=== PATIENT | male | born 1950 | race Caucasian/White ===

== ENCOUNTER 2016-10-17 09:37 | Inpatient (IN) | payer BC ==
[~2016-10-17] VITALS: Ht 167.6 cm; Wt 78.5 kg
[~2016-10-17 09:37] MED LIST: ASPIR-LOW81 MG PO; LISINOPRIL20 MG PO; MEN'S 50+ DAIL1 EACH PO; PANTOPRAZOLE SO40 MG PO; Protonix PO; SIMVASTATIN40 MG PO; VICODIN ES 7.51 EAC1 PO; Zocor PO
[2016-10-17] MEDS ORDERED: HYDROCODON-ACE1 EAC9 PO (10:10)
[2016-10-17 11:08] LABS: EOSINOPHIL (%) 0.4 % (0-5); HEMATOCRIT 45.2 % (38.0-50.0); IMMATURE GRANULOCYTE (%) 0.3 % (0.0-0.7); INSTRUMENT ABS NEUTROPHIL CT 5.4 K/uL; LYMPHOCYTE COUNT 1.8 K/uL (1.0-2.8); MCH 29.7 PG (29.0-34.0); MCHC 34.1 G/DL (30.0-36.0); MCV 87.1 FL (86-99); MEAN PLAT.VOLUME 10.3 uM^3 (9.0-12.4); MONOCYTE COUNT 0.6 K/uL (0-0.8); NEUTROPHIL (%) 68.5 % (45-76); NEUTROPHIL COUNT 5.4 K/uL (1.8-6.4); PLATELET COUNT 178 K/uL (156-360); RBC DIS.WIDTH-CV 12.6 % (11.8-14.6); RBC DIS.WIDTH-SD 40.5 % (39-53); RED BLOOD COUNT 5.19 M/uL (4.00-5.50); WHITE BLOOD COUNT 7.8 K/uL (4.1-10.2)
[2016-10-17 11:20] LABS: INTER. NORMALIZED RATIO 1.1; PROTHROMBIN TIME 11.1 (9.2-11.2); PTT 29.2 (25-32)
[2016-10-17 11:39] LABS: ANION GAP 9 MEQ/L (2-14); CHLORIDE 105 MEQ/L (99-109); GFR ESTIMATE (CALCULATED) > 59 mL/min/; GLUCOSE 111 mg/dL (70-99); POTASSIUM 4.2 MEQ/L (3.7-5.4); SAMPLE HEMOLYSIS CHECK 0; SAMPLE ICTERIC CHECK 0; SAMPLE LIPEMIA CHECK 0; SODIUM 143 MEQ/L (136-147); UREA NITROGEN (BUN) 15 mg/dL (9-23)
[2016-10-17 11:49] LABS: TROP-I INTERPRETATION NEGATIVE; TROPONIN-I < 0.01 ng/mL (0.0-0.30)
[2016-10-17] MEDS ORDERED: LOW DOSE ASPIRI81 M1 PO (13:52)
[2016-10-17] MEDS ORDERED: ALEVE LIQUID G220 MG PO (13:52)
[2016-10-17 14:00] LABS: BASE EXCESS 2.2 mEq/L (-3 to +3); BICARBONATE 27.3 mEq/L (22-26); CARBOXY HGB 1.9 % (0-5); METHEMOGLOBIN 1.4 % (0-1.5); PCO2 43 mm Hg (35-45); PO2 85 mm Hg (80-100); pH 7.41 (7.35-7.45)
[2016-10-17 14:01] LABS: COMMENTS - BLOOD GASES A+C+; FI02 0.21 %; SITE RR
[2016-10-17 19:35] LABS: ADD MIUA? NO; BILIRUBIN NEGATIVE; BLOOD NEGATIVE; COLOR STRAW ((YELLOW)); GLUCOSE (STRIP) NEGATIVE; KETONES NEGATIVE; LEUKOCYTES NEGATIVE; NITRITE NEGATIVE; PROTEIN (STRIP) NEGATIVE; SPECIFIC GRAVITY 1.009 (1.000-1.030); UCUL ADDED? NO; UROBILINOGEN 0.2 MG/DL (0.2-1.0)
[2016-10-17 20:49] LABS: TROP-I INTERPRETATION NEGATIVE; TROPONIN-I < 0.01 ng/mL (0.0-0.30)
[2016-10-17 20:58] VITALS: BP 151/82
[2016-10-17 23:39] VITALS: BP 160/81
[2016-10-18 03:59] VITALS: BP 154/76
[2016-10-18 05:41] LABS: TROP-I INTERPRETATION NEGATIVE; TROPONIN-I 0.01 ng/mL (0.0-0.30)
[2016-10-18 08:19] VITALS: BP 131/79
== END 2016-10-18 10:35 | disposition home or self-care (01) | DRG 69 ==
LOC: EME 09:37 → EDOF 14:57 → 5SOUTH 18:06 → EDOF 18:06 → 5SOUTH 20:56
PROVIDERS: Emergency Medicine; Family Medicine
DX: G45.9 Transient cerebral ischemic attack, unspecified (principal); E16.2 Hypoglycemia, unspecified; K21.9 Gastro-esophageal reflux disease without esophagitis; I10 Essential (primary) hypertension; E78.5 Hyperlipidemia, unspecified; G89.4 Chronic pain syndrome; Z79.82 Long term (current) use of aspirin; Z86.73 Personal history of transient ischemic attack (TIA), and cerebral infarction without residual deficits
CPT/HCPCS: 36600; 70450; 70551; 71010; 80048; 81003; 82803; 82810; 84484; 85025; 85610; 85730; 87040; 93005; 93880; 99281; 99285; J7030

== ENCOUNTER 2017-07-05 17:35 | Emergency (ER) | payer BC ==
[~2017-07-05] VITALS: Ht 167.6 cm; Wt 71.9 kg
[~2017-07-05 17:35] MED LIST changes: +ALEVE LIQUID G220 MG PO; +HYDROCODON-ACE1 EAC9 PO; +LOW DOSE ASPIRI81 M1 PO
[2017-07-05 18:21] LABS: HEMATOCRIT 43.4 % (38.0-50.0); MCH 30.3 PG (29.0-34.0); MCHC 34.8 G/DL (30.0-36.0); MEAN PLAT.VOLUME 10.2 uM^3 (9.0-12.4); PLATELET COUNT 134 K/uL (156-360); RBC DIS.WIDTH-CV 13.2 % (11.8-14.6); RBC DIS.WIDTH-SD 41.4 % (39-53); RED BLOOD COUNT 4.99 M/uL (4.00-5.50); WHITE BLOOD COUNT 22.6 K/uL (4.1-10.2)
[2017-07-05 18:29] LABS: CHLORIDE 106 mEq/L (99-109); POTASSIUM 3.4 mEq/L (3.7-5.4); SODIUM 142 mEq/L (136-147)
[2017-07-05 18:31] LABS: GLUCOSE 103 mg/dL (70-99)
[2017-07-05 18:32] LABS: ANION GAP 10 MEQ/L (2-14)
[2017-07-05 18:34] LABS: GFR ESTIMATE (CALCULATED) > 59 mL/min/ (58.99-99999)
[2017-07-05 18:35] LABS: UREA NITROGEN (BUN) 18 mg/dL (9-23)
[2017-07-05] MEDS ORDERED: AZITHROMYCIN250 MG1 PO (20:56)
[2017-07-05 21:10] VITALS: BP 140/83
== END 2017-07-05 21:12 | disposition home or self-care (01) ==
LOC: EME 17:35
PROVIDERS: Emergency Medicine
DX: J04.0 Acute laryngitis (principal); B34.9 Viral infection, unspecified; R41.0 Disorientation, unspecified; R51 Headache; M54.2 Cervicalgia; R53.1 Weakness; Z86.73 Personal history of transient ischemic attack (TIA), and cerebral infarction without residual deficits; I10 Essential (primary) hypertension; E78.5 Hyperlipidemia, unspecified; Z79.82 Long term (current) use of aspirin
CPT/HCPCS: 70450; 70491; 71020; 80048; 85027; 87502; 87651 90; 99281; 99284; J1100

== ENCOUNTER 2017-08-24 00:59 | Emergency (ER) | payer OTHER, BC ==
[~2017-08-24] VITALS: Ht 167.6 cm; Wt 78.1 kg
[~2017-08-24 00:59] MED LIST changes: +AZITHROMYCIN250 MG1 PO
[2017-08-24] MEDS ORDERED: ULTRAM50 MG PO (03:49)
[2017-08-24 04:14] VITALS: BP 139/85
== END 2017-08-24 04:34 | disposition home or self-care (01) ==
LOC: EME 00:59
DX: S80.02XA Contusion of left knee, initial encounter (principal); I10 Essential (primary) hypertension; W17.89XA Other fall from one level to another, initial encounter
CPT/HCPCS: 73564; 99281; 99284